=== PATIENT | female | born 1995 | race Caucasian/White ===

== ENCOUNTER 2021-05-14 21:58 | Emergency (ER) | payer OTHER ==
[2021-05-14 22:55] LABS: RED BLOOD COUNT 4.63 M/UL (4.00-5.10); WHITE BLOOD COUNT 16.1 K/UL (4.5-11.0)
[2021-05-14 23:08] LABS: BUN/CREATININE RATIO 11 (0-10)
== END 2021-05-15 02:43 | disposition home or self-care (01) ==
LOC: ER1 21:58
PROVIDERS: Physician Assistant
DX: R07.9 Chest pain, unspecified (principal); Z20.822 Contact with and (suspected) exposure to COVID-19
CPT/HCPCS: 0240U; 71045; 80053; 82550; 82553; 83880; 84484; 84703; 85025; 85379; 85610; 85730; 93005; 99285